=== PATIENT | male | born 1995 | race Caucasian/White ===

== ENCOUNTER 2017-03-13 09:30 | Emergency (ER) | payer SELFPAY ==
[~2017-03-13] VITALS: Ht 175.3 cm; Wt 70.3 kg
[2017-03-13 09:38] VITALS: BP 166/95
[2017-03-13] MEDS ORDERED: IV NORMAL SALINE 1000ML BAG 1,000 ML IV SCH (09:44)
[2017-03-13] MEDS: fentaNYL PF VIAL 100 MCG/2 ML VIAL IV PRN ×2 (10:01→11:25)
[2017-03-13 10:08] LABS: CALCIUM 9.6 mg/dL (8.5-10.1); CREATININE 0.7 mg/dL (0.7-1.3); GFR 139.8; POTASSIUM 3.8 mmol/L (3.5-5.1)
[2017-03-13 10:10] LABS: BILIRUBIN,URINE NEGATIVE (NEG); GLUCOSE,URINE NEGATIVE (NEG); NITRITE,URINE NEGATIVE (NEG); PH,URINE 6.5; PROTEIN,URINE NEGATIVE (NEG-TRACE); UROBILINOGEN,URINE 0.2 mg/dL (0.2 mg/dL)
[2017-03-13] MEDS ORDERED: TAMSULOSIN 0.4 MG CAP.ER.24H. PO ONE (10:15)
[2017-03-13] MEDS ORDERED: KETOROLAC 30 MG/ML INJ. IV ONE (10:15)
[2017-03-13 10:19] LABS: BASO % 0 % (0-3); EOS % 1 % (0-3); HEMATOCRIT 48.2 % (39.0-53.0); HEMOGLOBIN 16.4 g/dL (13.0-17.5); LYMPH # 1.4 x10^3/uL (1.0-4.8); LYMPH % 12 % (24-48); MEAN CORPUSCULAR HEMOGLOBIN 30 pg (25-35); MEAN CORPUSCULAR HGB CONC 34 g/dL (31-37); MEAN CORPUSCULAR VOLUME 88 fL (79-100); MONO % 4 % (0-9); NEUT % 83 % (31-73); PLATELET COUNT 271 x10^3/uL (140-400); RED BLOOD COUNT 5.48 x10^6/uL (4.30-5.70); WHITE BLOOD COUNT 12.4 x10^3/uL (4.0-11.0)
[2017-03-13 10:25] LABS: BACTERIA,URINE 0 /HPF (0-FEW); SQUAMOUS EPITHELIAL CELL,UR OCC /LPF; WBC,URINE OCC /HPF (0-4)
[2017-03-13] MEDS ORDERED: HYDR-2758 PO (10:35)
[2017-03-13] MEDS ORDERED: TAMS0.4C97 PO (10:35)
--- NOTE | 2017-03-13 10:35 | PHYS DOC ---
Past Medical History Past Medical History: Kidney Stone Past Surgical History: No Surgical History Alcohol Use: Occasionally Drug Use: None Adult General Chief Complaint Chief Complaint: FLANK PAIN HPI HPI 21-year-old male presenting to the emergency department today with left lower abdominal pain and left flank pain over the past 2-3 days. He has a history of kidney stones and reports that his pain is sharp moderate intermittent and mildly alleviated by Tylenol. He denies any hematuria. He denies vomiting. He endorses mild nausea. Review of systems is negative for fevers chills cough chest pain shortness of breath. All other review of systems is negative unless otherwise noted in history of present illness. ED course: 21-year-old male presenting to the emergency department with left- sided flank pain. Patient's pain was treated with Toradol and Flomax here in the emergency room with fentanyl available as needed for severe pain. Blood work obtained along with urinalysis and CT the abdomen pelvis. The patient was then discharged home in stable condition to follow up with their primary care physician over the next 2-3 days. They were to return if their symptoms worsened or if they were concerned for any reason. [id number] discharge instructions and return precautions were given. Patient's questions were answered to their satisfaction. Patient is comfortable plan. Review of Systems Review of Systems SEE ABOVE. Current Medications Current Medications Current Medications Medications (Trade) Dose Ordered Sig/Eulalio Start Time Stop Time Status Last Admin Dose Admin Fentanyl Citrate (Fentanyl 2ml Vial) 50 mcg PRN Q15MIN PRN 03/13/17 09:45 03/14/17 09:44 03/13/17 10:01 50 MCG Ketorolac Tromethamine (Toradol) 15 mg 1X ONCE 03/13/17 10:15 03/13/17 10:16 DC 03/13/17 10:00 15 MG Sodium Chloride 1,000 ml @ 1,000 mls/hr Q1H 03/13/17 09:44 03/13/17 10:43 DC 03/13/17 09:57 1,000 MLS/HR Tamsulosin HCl (Flomax) 0.4 mg 1X ONCE 03/13/17 10:15 03/13/17 10:16 DC 03/13/17 09:57 0.4 MG Allergies Allergies Allergies Coded Allergies Type Severity Reaction Last Updated Verified No Known Drug Allergies 03/13/17 No Physical Exam Physical Exam SEE ABOVE Constitutional: Well developed, well nourished, no acute distress, non-toxic appearance. HENT: Normocephalic, atraumatic, bilateral external ears normal, oropharynx moist, no oral exudates, nose normal. Eyes: PERRLA, EOMI, conjunctiva normal, no discharge. Neck: Normal range of motion, no tenderness, supple, no stridor. [] Cardiovascular:Heart rate regular rhythm, no murmur Lungs & Thorax: Bilateral breath sounds clear to auscultation Abdomen: Soft nontender abdomen without rebound tenderness or guarding present. Negative McBurneys point. Negative Torres sign. No ecchymosis present. Skin: Warm, dry, no erythema, no rash. Back: No tenderness, mild left cva tenderness. Extremities: No tenderness, no cyanosis, no clubbing, ROM intact, no edema. Neurologic: Alert and oriented X 3, normal motor function, normal sensory function, no focal deficits noted. Psychologic: Affect normal, judgement normal, mood normal. Current Patient Data Vital Signs Vital Signs Date Time Temp Pulse Resp B/P (MAP) Pulse Ox O2 Delivery O2 Flow Rate FiO2 03/13/17 10:37 18 03/13/17 09:38 97.9 72 166/95 (118) 100 Room Air 97.9 Lab Values Laboratory Tests Test 03/13/17 09:38 03/13/17 09:50 Urine Collection Type Unknown Urine Color Yellow Urine Clarity Clear Urine pH 6.5 Urine Specific [place] 1.020 Urine Protein Negative mg/dL (NEG-TRACE) Urine Glucose (UA) Negative mg/dL (NEG) Urine Ketones (Stick) Negative mg/dL (NEG) Urine Blood Negative (NEG) Urine Nitrite Negative (NEG) Urine Bilirubin Negative (NEG) Urine Urobilinogen Dipstick 0.2 mg/dL (0.2 mg/dL) Urine Leukocyte Esterase Negative (NEG) Urine RBC 1-2 /HPF (0-2) Urine WBC Occ /HPF (0-4) Urine Squamous Epithelial Cells Occ /LPF Urine Bacteria 0 /HPF (0-FEW) Urine Hyaline Casts Occasional /HPF Urine Mucus Slight /LPF White Blood Count 12.4 x10^3/uL (4.0-11.0) H Red Blood Count 5.48 x10^6/uL (4.30-5.70) Hemoglobin 16.4 g/dL (13.0-17.5) Hematocrit 48.2 % (39.0-53.0) Mean Corpuscular Volume 88 fL (79-100) Mean Corpuscular Hemoglobin 30 pg (25-35) Mean Corpuscular Hemoglobin Concent 34 g/dL (31-37) Red Cell Distribution Width 12.0 % (11.5-14.5) Platelet Count 271 x10^3/uL (140-400) Neutrophils (%) (Auto) 83 % (31-73) H Lymphocytes (%) (Auto) 12 % (24-48) L Monocytes (%) (Auto) 4 % (0-9) Eosinophils (%) (Auto) 1 % (0-3) Basophils (%) (Auto) 0 % (0-3) Neutrophils # (Auto) 10.4 x10^3uL (1.8-7.7) H Lymphocytes # (Auto) 1.4 x10^3/uL (1.0-4.8) Monocytes # (Auto) 0.5 x10^3/uL (0.0-1.1) Eosinophils # (Auto) 0.1 x10^3/uL (0.0-0.7) Basophils # (Auto) 0.0 x10^3/uL (0.0-0.2) Sodium Level 140 mmol/L (136-145) Potassium Level 3.8 mmol/L (3.5-5.1) Chloride Level 102 mmol/L (98-107) Carbon Dioxide Level 28 mmol/L (21-32) Anion Gap 10 (6-14) Blood Urea Nitrogen 13 mg/dL (8-26) Creatinine 0.7 mg/dL (0.7-1.3) Estimated GFR (Cockcroft-Gault) 139.8 Glucose Level 91 mg/dL (70-99) Calcium Level 9.6 mg/dL (8.5-10.1) Laboratory Tests 03/13/17 09:50 Laboratory Tests 03/13/17 09:50 EKG EKG [] Radiology/Procedures Radiology/Procedures [] Course & Med Decision Making Course & Med Decision Making Pertinent Labs and Imaging studies reviewed. (See chart for details) [] Dragon Disclaimer Dragon Disclaimer This electronic medical record was generated, in whole or in part, using a voice recognition dictation system. Departure Departure Impression: Primary Impression: Left flank pain Disposition: HOME, SELF-CARE Condition: STABLE Referrals: NO PCP (PCP) Patient Instructions: Flank Pain, [id number] Additional Instructions: Thank you for allowing us to participate in your care today. Followup with your primary care physician in 3 days if your symptoms do not improve. Call your Primary Doctor tomorrow and inform them of your visit today. If you do not have a primary care provider you can ask for a list of our primary care providers. Return to the emergency department you have any new or concerning findings. This should be evaluated by the primary care physician and any necessary consulting services for continued management within a few days after discharge. Return to emergency room if you have any new or concerning symptoms including but not limited to fever, chills, nausea, vomiting, intractable pain, any new rashes, chest pain, shortness of air, uncontrolled bleeding, difficulty breathing, and/or vision loss. Scripts Tamsulosin Hcl (FLOMAX) 0.4 Mg Cap.er.24h 1 CAP PO DAILY, #5 CAP 0 Refills Prov: REINALDO ZELAYA MD 03/13/17 REINALDO ZELAYA MD Mar 13, 2017 10:35
--- NOTE | 2017-03-13 10:43 | RAD ---
CT ABDOMEN AND PELVIS WITHOUT IV CONTRAST History: Left flank pain, history of stones Comparison: None. Technique: Helical CT of the abdomen and pelvis was performed from the lung bases through the ischial tuberosities. Axial and coronal reconstructions were obtained. Abdomen Findings: The visualized lung bases are clear. Evaluation of visceral organs is limited without intravenous contrast. The liver, spleen, pancreas, gallbladder, and bilateral adrenal glands are normal. Bilateral kidneys do not demonstrate focal abnormality. There is no hydronephrosis. Visualized loops of large and small bowel are normal. There is no evidence of bowel obstruction. Appendix appears within normal limits. Clustered prominent pericecal lymph nodes do not meet CT criteria for enlargement. The abdominal aorta is normal in caliber. Pelvis findings: Urinary bladder is normal. Normal prostate and seminal vesicles. There is no free fluid. There is no significant pelvic or inguinal adenopathy. There is no acute bony abnormality. ANCILLARY FINDINGS: . IMPRESSION: 1. No radiopaque urinary calculi. No obstructive uropathy. 2. Clustered prominent pericecal lymph nodes. The appendix is normal in size without periappendiceal inflammatory changes. PQRS Compliance Statement: One or more of the following individualized dose reduction techniques were utilized for this examination: 1. Automated exposure control 2. Adjustment of the mA and/or kV according to patient size 3. Use of iterative reconstruction technique
== END 2017-03-13 11:31 | disposition home or self-care (01) ==
LOC: ER 09:30
DX: R10.32 Left lower quadrant pain (principal); Z87.442 Personal history of urinary calculi
CPT/HCPCS: 36415; 74176; 80048; 81001; 85025; 96361; 96374; 96375; 96376; 99285; J1885; J3010; J7030